=== PATIENT | male | born 1995 | race Caucasian/White ===

== ENCOUNTER 2018-06-26 06:27 | Day surgery (SDC) | payer OTHER ==
[2018-06-25 11:12] VITALS: BMI 25.0
[2018-06-26] MEDS ORDERED: COCAINE HCL 4% TOPICAL SOLUTION 4 ML BOTTLE TP ONE ×2 (07:25→08:29)
[2018-06-26] MEDS ORDERED: BACITRACIN 15 GM TUBE TOPICAL OINTMENT ONE (07:27)
[2018-06-26] MEDS ORDERED: MIDAZOLAM HCL 2 MG/2 ML SINGLE DOSE VIAL ONE (07:28)
[2018-06-26] MEDS ORDERED: fentaNYL CITRATE 250 MCG/5 ML VIAL ONE (07:28)
[2018-06-26] MEDS ORDERED: PROPOFOL 20 ML ONE ×2 (07:28)
[2018-06-26] MEDS ORDERED: ROCURONIUM BROMIDE 50 MG/5 ML VIAL ONE (07:28)
[2018-06-26] MEDS ORDERED: DEXAMETHASONE SOD PHOSPHATE 4 MG/1 ML VIAL ONE (07:34)
[2018-06-26] MEDS ORDERED: DESFLURANE GAS 240 ML BOTTLE IH ONE (07:39)
--- NOTE | 2018-06-26 08:00 | HP ---
Admitting History and Physical - Primary Care Physician PCP: Rony Acosta - Admission Chief Complaint: Nasal blockage History of Present Illness: Pt with right nasal congestion constantly not improved with meds. History Source: Patient, Medical Record Limitations to Obtaining History: No Limitations - Smoking History Smoking history: Never smoked - Alcohol/Substance Use Hx Alcohol Use: Yes (socially) Home Medications - Allergies Allergies/Adverse Reactions: Allergies Allergy/AdvReac Type Severity Reaction Status Date / Time peanut Allergy Mild Itching Verified 06/26/18 07:59 - Home Medications Home Medications: Ambulatory Orders NK [No Known Home Medication] 06/25/18 Physical Examination Vital Signs: Vital Signs Temperature 98.0 F 06/26/18 06:49 Pulse Rate 58 L 06/26/18 06:49 Respiratory Rate 16 06/26/18 06:49 Blood Pressure 117/76 06/26/18 06:49 O2 Sat by Pulse Oximetry (%) 98 06/26/18 06:48 Constitutional: Yes: Well Nourished, No Distress, Calm Eyes: Yes: WNL, Conjunctiva Clear, EOM Intact HENT: Yes: WNL, Atraumatic, Normocephalic, Nasal Congestion, Other (turbinate hypertrophy, DNS) Neck: Yes: WNL, Supple, Trachea Midline Cardiovascular: Yes: WNL, Regular Rate and Rhythm Respiratory: Yes: WNL Gastrointestinal: Yes: WNL Musculoskeletal: Yes: WNL Extremities: Yes: WNL Imaging - Results Cat Scan: Image Reviewed (DNS, turb hypertrophy) Problem List - Problems (1) Deviated septum Code(s): J34.2 - DEVIATED NASAL SEPTUM (2) Nasal turbinate hypertrophy Assessment/Plan: For surgical correction Code(s): J34.3 - HYPERTROPHY OF NASAL TURBINATES
[2018-06-26] MEDS ORDERED: LIDOCAINE 1%/EPI 1:100000 (50 ML MULTI DOSE VIAL) PNB ONE ×2 (08:29)
[2018-06-26] MEDS ORDERED: ceFAZolin SODIUM 1 GM VIAL IVPB ONE (08:29)
[2018-06-26] MEDS ORDERED: GLYCOPYRROLATE 0.2 MG/1 ML VIAL ONE ×2 (09:02)
[2018-06-26] MEDS ORDERED: NEOSTIGMINE METHYLSULFATE 0.5 MG/ML - 10 ML MDV ONE (09:02)
[2018-06-26] MEDS ORDERED: ONDANSETRON 4 MG/2 ML VIAL IVPUSH PRN (09:58)
[2018-06-26] MEDS ORDERED: oxyCODONE HCL 5 MG TABLET PO PRN ×2 (09:58)
[2018-06-26] MEDS ORDERED: LACTATED RINGERS SOLUTION 1,000 ML IV SCH (10:00)
[2018-06-26] MEDS ORDERED: oxyCODONE HCL 5 MG TABLET ONE (10:44)
[2018-06-26 12:48] VITALS: PULSE 70; TEMP 98
[2018-06-26 12:54] VITALS: BP 122/70
--- NOTE | 2018-06-27 18:39 | PATH ---
Surgical Pathology Report Patient Name: ANA GARDINER Med. Rec. #: [id number] /Age/Gender: 1995 (Age: 23) / M Account: [id number] Location: [facility] SURGICAL Taken: 06/26/2018 Received: 06/26/2018 Reported: 06/27/2018 Physicians: Tate Lagunas M.D. Specimen(s) Received NASAL SEPTUM Clinical History Deviated septum/hypertrophic nasal turbinate Final Diagnosis NASAL SEPTUM AND BONE, SEPTOPLASTY: BENIGN CARTILAGE AND BONE. Electronically Signed Shamika Lyn M.D. Gross Description Received in formalin labeled "nasal septum" are multiple irregular fragments of pink[place] soft tissue, bone, and cartilage which measures 2 x 2 x 0.5 cm in aggregate. The entire specimen is submitted after brief decalcification. MLSZ/06/26/2018 [place]jayne/06/26/2018
== END 2018-06-26 12:55 | disposition home or self-care (01) ==
LOC: JASU-SURG 06:27
PROVIDERS: ATTEND Otolaryngology
PROC: 09SL8ZZ Reposition Nasal Turbinate, Via Natural or Artificial Opening Endoscopic (ICD-10-PCS; 2018-06-26)
PROC: 09BM8ZZ Excision of Nasal Septum, Via Natural or Artificial Opening Endoscopic (ICD-10-PCS; principal; 2018-06-26 08:00)
DX: J34.2 Deviated nasal septum (principal); J34.3 Hypertrophy of nasal turbinates
CPT/HCPCS: 88302-TC; 88311-TC; 94760